=== PATIENT | female | born 1945 | race Caucasian/White ===

== ENCOUNTER 2019-05-02 14:10 | Inpatient (IN) ==
[2019-05-02] MEDS ORDERED: NITROGLYCERIN SL PRN (14:48)
[2019-05-02] MEDS ORDERED: ASPIRIN PO ONE (14:48)
[2019-05-02 15:29] LABS: BASO# 0.03 X1000 (0.0-0.2); BASO% 0.4 % (0.0-0.8); EOS# 0.09 X1000 (0.0-0.7); EOS% 1.2 % (0.0-10.0); HEMATOCRIT 39.1 % (37.0-47.0); IMM GRAN# 0.02 X1000 (0.0-0.04); IMM GRAN% 0.3 % (0.0-0.5); LYMPH% 28.9 % (20.5-51.1); MCH 26.5 PG (27-31); MCHC 33.2 g/dL (33-37); MCV 79.6 FL (81-99); MONO# 0.79 X1000 (0.11-0.59); MONO% 10.9 % (1.7-9.3); MPV 10.3 FL (7.4-10.4); NEUT# 4.23 X1000 (1.4-6.5); NEUT% 58.3 % (42.2-75.2); PLT 292 X1000 (130-400); RBC 4.91 XMIL (4.2-5.4); RDW 13.7 % (11.5-14.5); WBC 7.26 X1000 (4.8-10.8)
[2019-05-02 15:46] LABS: INR 0.89; PROTIME 12.8 Seconds (11.0-16.0)
[2019-05-02 15:47] LABS: PTT 27.9 Seconds (22.3-41.8)
[2019-05-02 16:03] LABS: ALB/GLOB RATIO 1.7; ALBUMIN 4.5 g/dL (3.5-5.0); CALCIUM 9.6 mg/dL (8.8-10.2); CREATININE 1.9 mg/dL (0.5-0.9); POTASSIUM 3.7 mmol/L (3.5-5.1); TOTAL BILIRUBIN 0.29 mg/dL (0.20-1.00); TOTAL PROTEIN 7.2 g/dL (6.3-8.3)
--- NOTE | 2019-05-02 16:18 | EKG Report ---
Test Performed on : 05/02/2019 2:20:19 PM Test Reason : ED. No order in [place] Blood Pressure : / mmHG Vent. Rate : 065 BPM Atrial Rate : 065 BPM P-R Int : 168 ms QRS Dur : 092 ms QT Int : 426 ms P-R-T Axes : 082 003 011 degrees QTc Int : 443 ms Normal sinus rhythm. RSR' or QR pattern in V1 suggests right ventricular conduction delay Cannot rule out Anterior infarct , age undetermined Abnormal ECG When compared with ECG of 06-FEB-2018 18:31, premature atrial complexes. are no longer present Unconfirmed Result
--- NOTE | 2019-05-02 16:44 | Diag Imaging Result Doc PS360 ---
EXAM: CHEST-2 VIEWS INDICATION: sob, left arm pain TECHNIQUE: 2 views COMPARISON: 02/06/2018 FINDINGS: The lungs are grossly clear. There is no discrete pleural fluid collection or pneumothorax. The cardiomediastinal silhouette and central vasculature are grossly unremarkable. IMPRESSION: No evidence of acute pathology by plain radiograph. Electronically signed by Ahmet Norris 05/02/2019 4:41 PM
[2019-05-02] MEDS ORDERED: NS 1,000 ML IV ONE (16:48)
--- NOTE | 2019-05-02 16:48 | PROVIDER DOCUMENTATION ---
This chart was entered by Mariposa Grayson Scribe, acting as scribe for Trevor Burroughs MD. HPI-Chest Pain - General Chief Complaint: Near Syncope Stated Complaint: LIGHT HEADED / ARM PAIN Time Seen by Provider: 05/02/19 14:28 Source: patient Allergies/Adverse Reactions: Patient Allergies Allergy/AdvReac Type Severity Reaction Status Date / Time adhesive Allergy Intermediate RASH Verified 02/06/18 18:41 codeine [Codeine] AdvReac Unknown Unknown Verified 02/06/18 18:41 iron AdvReac Unknown NAUSEA Verified 02/06/18 18:41 meperidine HCl * AdvReac Unknown Unknown Verified 02/06/18 18:41 [From Demerol] promethazine HCl * AdvReac Unknown Unknown Verified 02/06/18 18:41 [From Phenergan] procaine HCl * AdvReac Unknown Verified 02/06/18 18:41 [From Novocain] Home Medications: Home Medication List Medication Instructions Recorded Confirmed Last Taken Type Atorvastatin Calcium 20 mg PO HS 09/29/15 05/02/19 09/05/16 21:00 History Hydrochlorothiazide 12.5 mg PO HS 09/29/15 05/02/19 02/05/18 20:00 History Sertraline HCl 50 mg PO HS 09/29/15 05/02/19 02/05/18 20:00 History Clopidogrel Bisulfate [Plavix] 75 mg PO HS 05/10/16 05/02/19 02/05/18 20:00 History Atenolol [Tenormin] 1 tab PO DAILY 05/02/19 05/02/19 Unknown History Trazodone [Desyrel] 1 tab PO QHS 05/02/19 05/02/19 Unknown History - History of Present Illness-CP Nature of Presenting Problem: 73yof presents to ED cc left arm on and off for 1 week, severe, lasts about 20- 30mins at a time associated with sweating. Pt reports she was in [facility] today when she stood up and got very lightheaded so she decided to come to ED for evaluation. Pt denies chest pain. Pt has hx of [place] s/p stents and HTN. Pt is A*Ox3 and nontoxic in appearance. Review of Systems - Adult - REVIEW OF SYSTEMS - ADULT Constitutional: reports: other (sweating) Eyes: reports: no symptoms reported Ears, Nose, Mouth & Throat: reports: no symptoms reported Cardiovascular: reports: see HPI Respiratory: reports: no symptoms reported Gastrointestinal: reports: no symptoms reported Genitourinary: reports: no symptoms reported Musculoskeletal: reports: no symptoms reported Past History - Adult - PAST MEDICAL HISTORY-ADULT Review of Records: reports: Nursing Assessment Review, Medications Reviewed, Social history reviewed & non-contributory. Major Childhood Illnesses: reports: denies history Cardiovascular: reports: cardiac disease, CAD, [place] Respiratory: reports: denies history Gastrointestinal: reports: diverticulosis, other (gastroparesis, barretts esophagus) Obstetrical/Gynecological: reports: denies history Genitourinary: reports: denies history Musculoskeletal: reports: arthritis Neurological: reports: dementia Endocrine/Immune: reports: hypoglycemia Other Conditions: reports: denies history - PRIOR SURGERIES/PROCEDURES Surgical/Procedure History: reports: appendectomy, cholecystectomy, cardiac stent, tonsillectomy, hernia repair (X 2), breast - IMMUNIZATION STATUS Childhood Immunizations: See Nurse Assessment Flu Vaccine: See Nurse Assessment - FAMILY HISTORY Family History: reviewed, not pertinent Physical Exam-General - PHYSICAL EXAM-ADULT Initial Vital Signs Reviewed: Yes - CONSTITUTIONAL General Appearance: appears well, alert, no apparent distress. negative: anxious, combative - EYES Eyes: PERRL/EOMI, pink conjunctivae - HEAD, EARS, NOSE, MOUTH & THROAT HENMT: normocephalic/atraumatic, moist mucous membranes, normal ENT inspection - NECK Neck: non-tender, full range of motion, supple, normal inspection. negative: C- spine tenderness - RESPIRATORY Respiratory: chest non-tender, lungs clear, normal breath sounds - CARDIOVASCULAR Cardiovascular: normal peripheral pulses, regular rate, rhythm, no edema, no JVD , no murmur. negative: bradycardia, tachycardia - GASTROINTESTINAL (ABDOMEN) Abdominal Exam: normal bowel sounds, non tender, soft, no organomegaly, no pulsatile mass. negative: distended, guarding, rigid, rebound, tenderness - MUSCULOSKELETAL Back Exam: normal inspection, no CVA tenderness, no vertebral tenderness. 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 negative: facial droop, focal weakness - PSYCHIATRIC Psych/Mental Status: normal thought content, normal thought process, oriented x 3 - HEART Score HEART Score: History: Moderately Suspicious HEART Score: ECG: Normal HEART Score: Age: > or = 65 Years HEART Score: Risk Factors for Atherosclerotic Disease: > or = 3 Risk Factors or History of Atherosclerotic Disease HEART Score: Troponin: < or = Normal Limit Total HEART Score:: 5 Progress - PLAN OF CARE/RESULTS Progress/Plan/Lab Results: Vital Signs - 8 hr 05/02/19 14:17 05/02/19 14:41 Temperature 98.6 F Pulse Rate 67 Pulse Rate [Sitting] 98 H Pulse Rate [Standing] 66 Pulse Rate [Supine] 69 Respiratory Rate 18 Blood Pressure 182/75 Blood Pressure [Sitting] 171/88 Blood Pressure [Standing] 169/86 Blood Pressure [Supine] 155/74 O2 Sat by Pulse Oximetry 98 Laboratory Results - last 24 hr 05/02/19 05/02/19 05/02/19 15: 15:19 15:19 WBC 7.26 RBC 4.91 Hgb 13.0 Hct 39.1 MCV 79.6 L MCH 26.5 L MCHC 33.2 RDW Std Deviation 13.7 Plt Count 292 MPV 10.3 Immature Gran % (Auto) 0.3 Neut % (Auto) 58.3 Lymph % (Auto) 28.9 [place] % (Auto) 10.9 H Eos % (Auto) 1.2 Baso % (Auto) 0.4 Immature Gran # (Auto) 0.02 Neut # (Auto) 4.23 Lymph # (Auto) 2.10 [place] # (Auto) 0.79 H Eos # (Auto) 0.09 Baso # (Auto) 0.03 PT INR PTT (Actin FS) Sodium 136 Potassium 3.7 Chloride 95 L Carbon Dioxide 28 Anion Gap 13 BUN 15 Creatinine 1.9 H Estimated GFR/1.73 m2 26 BUN/Creatinine Ratio 8 Glucose 121 H POC Glucose Calculated Osmolality 274 Calcium 9.6 Total Bilirubin 0.29 AST 18 ALT 16 Alkaline Phosphatase 72 Creatine Kinase 159 Troponin T [id number] Pept 90 Total Protein 7.2 Albumin 4.5 Globulin 2.7 Albumin/Globulin Ratio 1.7 05/02/19 05/02/19 05/02/19 15:19 15:19 15:31 WBC RBC Hgb Hct MCV MCH MCHC RDW Std Deviation Plt Count MPV Immature Gran % (Auto) Neut % (Auto) Lymph % (Auto) [place] % (Auto) Eos % (Auto) Baso % (Auto) Immature Gran # (Auto) Neut # (Auto) Lymph # (Auto) [place] # (Auto) Eos # (Auto) Baso # (Auto) PT 12.8 INR 0.89 PTT (Actin FS) 27.9 Sodium Potassium Chloride Carbon Dioxide Anion Gap BUN Creatinine Estimated GFR/1.73 m2 BUN/Creatinine Ratio Glucose POC Glucose 120 H D Calculated Osmolality Calcium Total Bilirubin AST ALT Alkaline Phosphatase Creatine Kinase Troponin T < 0.010 [id number]-Iqhwjaigsht Pept Total Protein Albumin Globulin Albumin/Globulin Ratio Orders Category Date Time Status Cardiac Monitoring DIRECTED Care 05/02/19 14:48 Active Oxygen Therapy- ED Nursing DIRECTED Care 05/02/19 14:48 Active Saline Loc NOW Care 05/02/19 14:48 Active CHEST-2 VIEWS [RAD] Stat Exams 05/02/19 14:48 Completed CBC WITH ELECTRONIC DIFF [HEME] Stat Lab 05/02/19 15:19 Completed CK PROFILE [SP CHEM] Stat Lab 05/02/19 15:19 Completed COMPREHENSIVE METABOLIC PANEL [CHEM] Stat Lab 05/02/19 15:19 Completed PRO B-NATRIURETIC PEPTIDE Stat Lab 05/02/19 15:19 Completed PROTIME WITH INR [COAG] Stat Lab 05/02/19 15:19 Completed PTT [COAG] Stat Lab 05/02/19 15:19 Completed TROPONIN T Stat Lab 05/02/19 15:19 Completed Aspirin Med 05/02/19 14:48 Discontinued 325 mg PO NOW ONE Nitroglycerin Sl [Nitroglycerin] Med 05/02/19 14:48 Active 0.4 mg SL Q5M PRN PRN CP/SOB/Palp >45 yrs of Age Stat Oth 05/02/19 14:48 Ordered EKG [EKG] Stat Ther 05/02/19 14:20 Draft Transfer/Admit Order [TRANSFER] Routine Transfer 05/02/19 16:26 Ordered Ortho statics are unremarkable Result Diagrams: 05/02/19 15:19 05/02/19 15:19 - EKG 1 Time of EKG reading by physician:: 14:22 EKG Read and Signed by:: Trevor Burroughs EKG Interpretation (*Must complete 3 of following elements*): Abnormal (RSR or QR pattern in V1 suggests right ventricular conduction delay cannot rule out inferior infarct, age undetermined) Rate: 65 Rhythm: normal sinus QRS: normal ST Wave: normal - CONSULTS/PCP/HOSPITALIST Notification #1 *Consult/PCP/Hospitalist*: 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 TRUJILLO Time Discussed: 16:25 Consult Disposition: Admit (HX, PE AND PT CARE DISCUSSED, ACCEPTED.) Departure - Departure Date of Disposition Decision: 05/02/19 Time of Disposition Decision: 16:24 DIAGNOSIS: Left arm pain, Near syncope, YOLY (acute kidney injury) Disposition: ADMITTED INPATIENT 09 Certified Medical Emergency: Emergent Condition: Stable Additional Freetext Instructions: ED Follow Up Instructions: You have been treated by a care provider in the Emergency Department. These instructions are being provided to you so you can have an understanding of how to care for yourself upon discharge. Upon discharge from the Emergency Department, you are responsible for making arrangements for follow-up care by a physician of your choice. Take all prescribed medications as directed. Return to the Emergency Department immediately for any new or worsening symptoms. You may call the Physician Referral phone number at [phone] to obtain a list of Physicians who are taking new patients. Referrals and Follow-Ups: Adina Ferrera CRNP [Primary Care Provider] - - Critical Care Note This patient required my direct & personal management of CC.: No Attestation - Physician/ NA Attestation Patient care was provided by Advanced Practice Provider:: No The physician spent face to face time with patient:: Yes Advanced Practice Provider documentation review:: Supervising physician onsite and consulted in the evaluation and care of this patient. The physician did have a face to face encounter with the patient. This chart was documented by the indicated scribe, (Mariposa Grayson Scribe) and accurately reflects the services I performed and decisions made by me, Trevor Faulkner MD, as attested by the provider's signature.
[2019-05-02] MEDS ORDERED: NS 1,000 ML IV SCH (18:50)
[2019-05-02] MEDS ORDERED: TYLENOL PO PRN (18:50)
[2019-05-02] MEDS ORDERED: ZOFRAN IV PRN (18:50)
[2019-05-02] MEDS: PLAVIX PO SCH (20:53)
[2019-05-02] MEDS: LIPITOR PO SCH (20:54)
[2019-05-02 20:56] LABS: URINE SOURCE CLEAN CATCH
[2019-05-02] MEDS ORDERED: LIPITOR PO SCH (21:00)
[2019-05-02 21:05] LABS: BILIRUBIN URINE NEGATIVE (NEGATIVE); BLOOD URINE MODERATE (NEGATIVE); COLOR YELLOW; GLUCOSE URINE NEGATIVE (NEGATIVE); KETONE URINE NEGATIVE (NEGATIVE); LEUKOCYTES URINE TRACE (NEGATIVE); NITRITE URINE NEGATIVE (NEGATIVE); PH URINE 5.5; PROTEIN URINE NEGATIVE (NEGATIVE); SP GRAVITY URINE 1.013; TURBIDITY URINE CLEAR (CLEAR); UR EPITHELIAL CELLS <10 /HPF (<10); URINE BACTERIA NEGATIVE /HPF; URINE WBC <10 /HPF (<10); UROBILINOGEN URINE NORMAL (NORMAL)
[2019-05-02 21:13] LABS: PROTEIN CREAT RATIO 0.1; UR CREAT RANDOM 66.9 mg/dL (11-20); UR PROT RANDOM 6.7 mg/dL
--- NOTE | 2019-05-02 21:15 | Diag Imaging Result Doc PS360 ---
EXAM: CT HEAD W/O CONTRAST INDICATION: Dizziness, imbalance TECHNIQUE: This exam was performed using automated exposure control, adjustment of mA or kV according to patient size, and/or use of iterative reconstruction technique. COMPARISON: 11/08/2015 FINDINGS: There is stable diffuse brain atrophy and stable mild patchy low attenuation in the periventricular and subcortical white matter suggesting mild microangiopathy. There is no definite acute infarct given the limited sensitivity of CT versus MRI. There is no discrete intracranial mass, mass effect, or intracranial hemorrhage. The surrounding soft tissues and bony structures are essentially unremarkable. IMPRESSION: Stable chronic appearing changes as described. No definite acute intracranial pathology by CT. Electronically signed by Ahmet Norris 05/02/2019 9:12 PM
--- NOTE | 2019-05-02 21:26 | Diag Imaging Result Doc PS360 ---
EXAM: SHOULDER-LEFT INDICATION: Evaluate for arthritis of shoulder joint TECHNIQUE: 2 views COMPARISON: 11/08/2015 FINDINGS: There is no discrete fracture, dislocation, or significant intrinsic osseous lesion. The glenohumeral and AC joint spaces are grossly unremarkable. The spaces are preserved with no evidence of significant degenerative arthropathy. The surrounding soft tissues are essentially unremarkable. IMPRESSION: Essentially unremarkable plain radiograph of the left shoulder. Electronically signed by Ahmet Norris 05/02/2019 9:23 PM
--- NOTE | 2019-05-02 23:32 | HISTORY AND PHYSICAL ---
PRIMARY CARE PROVIDER: GARIMA Lake. SECONDARY CONNECTOR ARMATURE: Dr. Mackay. CHIEF COMPLAINT: "Had a spell." HPI: Ms Augustine is a 73-year-old female with past medical history of coronary artery disease status post PR with stenting, carotid artery disease followed by Dr. Mackay, hypertension, hyperlipidemia, osteoporosis, who reported for a couple weeks of left arm and shoulder pain and numbness same as her last PR would last about 30 minutes to an hour. She would rub out the pain. She did not have any chest pain per se or associated shortness of breath, nausea, vomiting, or dizziness. She did report on Sunday she was feeling bad. She took her blood pressure was 190/80. She was also having a hard time seeing then she got over that and continued to have the left arm numbness and shoulder pain intermittent however today she went to [facility] with some friends around 1:30, she stood up and almost had a near syncopal episode and since that time she has felt lightheaded that has never passed. Workup in the ED showed 1 negative cardiac enzyme and acute kidney injury with a creatinine of 1.9. EKG shows a normal sinus rhythm. Chest x-ray showed no evidence of acute pathology. She will be admitted to [facility]. Will consult Cardiology in the a.m. and set her up for an echocardiogram and carotid Dopplers and continue to trend her cardiac enzymes. PAST MEDICAL HISTORY: 1. Coronary artery disease status post PR with stenting. 2. Carotid artery disease. 3. Hypertension. 4. Hyperlipidemia. 5. Osteoporosis. PAST SURGICAL HISTORY: 1. Breast reduction. 2. Cholecystectomy. 3. Hernia repair. 4. Stent placement unknown artery. 5. She has had bilateral ankle surgery. FAMILY HISTORY: Mother passed from PR at the age of 76. One brother passed of an PR at the age of 60s. Another brother who passed at an unknown age from an PR. Father from metastatic melanoma I want to say back in the '60s, he had a spot on his arm and had his whole arm taken off. SOCIAL HISTORY: She is a . She lives alone. No alcohol, tobacco or illicit drug use. REVIEW OF SYSTEMS: Twelve-point review of systems complete negative except for those mentioned in HPI. HOME MEDICATIONS: 1. Tenormin 25 mg tablet p.o. daily. 2. Plavix 75 mg p.o. at bedtime. 3. Hydrochlorothiazide 12.5 mg p.o. at bedtime. 4. Zoloft 50 mg p.o. at bedtime. 5. Desyrel 50 mg tablet p.o. at bedtime. PHYSICAL EXAMINATION: VITAL SIGNS: Temperature is 98.6 degrees, heart rate was in the 50s, high 40s when I was in the room, respirations 14, blood pressure 155/92, O2 is 96% on room air. GENERAL: Ms. Augustine is a pleasant 73-year-old female who is sitting up in the bed rubbing her left arm but in no acute distress. HEENT: Atraumatic, normocephalic. PERRL. NECK: Supple. Trachea midline. CARDIOVASCULAR: S1, S2 appreciated. No murmurs, gallops, or rubs noted. No lower extremity edema. Bilateral pedal pulses are palpable. No carotid bruit appreciated. RESPIRATORY: Lung sounds clear bilaterally. GI: Soft, nontender, nondistended. Positive bowel sounds 4 quads. EXTREMITIES: No sign of clubbing or cyanosis. NEURO: No focal deficits noted. ASSESSMENT AND PLAN: 1. Chest pain in a patient with known coronary artery disease status post myocardial infarction and stenting 5 years ago. We will continue to do a full cardiac workup, consult Cardiology, continue to trend cardiac enzymes, first set is negative. Will continue her on her statin, check a lipid profile in the a.m., echocardiogram and carotid Dopplers in the morning. 2. Near syncope in a patient with known carotid artery disease. Again we will check her carotid Dopplers in the morning, monitor her on telemetry. Did not note any carotid bruits upon assessment, will place her on fall precautions up with assistance only, continue to track her orthostatics. Follow up CT head/brain. Continue to monitor her on telemetry. 3. Hypertension. 4. Acute kidney injury. We will hold her hydrochlorothiazide for now, gently hydrate her. 6. Hypertension currently holding her blood pressure medications. We will monitor closely. 7. Hyperlipidemia. Continue statin, check a lipid profile. 8. Osteoporosis aware. 9. Further recommendations to follow physician evaluation, laboratory and diagnostic data. Dictated by GARIMA Miller for Jadon Angel MD cc: Oleksandr Mackay MD I agree with most components of history, physical, assessement and plan. A separate addendum has been dictated. MTDD
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
[2019-05-03 04:39] LABS: BASO# 0.04 X1000 (0.0-0.2); BASO% 0.6 % (0.0-0.8); EOS# 0.09 X1000 (0.0-0.7); EOS% 1.3 % (0.0-10.0); HEMATOCRIT 37.6 % (37.0-47.0); HEMOGLOBIN 12.5 g/dL (12.0-16.0); LYMPH# 2.16 X1000 (1.2-3.4); LYMPH% 30.2 % (20.5-51.1); MCH 26.9 PG (27-31); MCHC 33.2 g/dL (33-37); MCV 80.9 FL (81-99); MONO# 0.64 X1000 (0.11-0.59); MPV 10.2 FL (7.4-10.4); NEUT# 4.22 X1000 (1.4-6.5); NEUT% 58.9 % (42.2-75.2); PLT 275 X1000 (130-400); RBC 4.65 XMIL (4.2-5.4); RDW 13.7 % (11.5-14.5); WBC 7.15 X1000 (4.8-10.8)
[2019-05-03 04:45] LABS: AGAP 11; ALB/GLOB RATIO 1.8; ALKALINE PHOSPHATASE 66 U/L (32-104); BUN 12 mg/dL (8-22); CALCIUM 8.8 mg/dL (8.8-10.2); CHLORIDE 101 mmol/L (98-107); CHOLESTEROL 107 mg/dL (0-200); COSMO 278; CREATININE 0.9 mg/dL (0.5-0.9); ESTIMATED GFR > 60; GLUCOSE 137 mg/dL (70-104); GOT 17 U/L (10-30); GPT 12 U/L (10-36); HDL 52 mg/dL (45-65); LDL 41 mg/dL; POTASSIUM 4.2 mmol/L (3.5-5.1); SODIUM 138 mmol/L (136-145); TCO2 26 mmol/L (25-35); TOTAL PROTEIN 6.2 g/dL (6.3-8.3); TRIGLYCERIDES 69 mg/dL (35-135); VLDL 14 mg/dL
[2019-05-03] MEDS ORDERED: TENORMIN PO SCH (09:00)
[2019-05-03] MEDS: PRILOSEC PO SCH (09:17)
[2019-05-03] MEDS: ASPIRIN PO SCH (09:17)
--- NOTE | 2019-05-03 11:04 | Diag Imaging Result Doc PS360 ---
EXAM: US RENAL 2 (RETROPER) COMPLETE INDICATION: jayesh/arf TECHNIQUE: COMPARISON: None. FINDINGS: The renal echotexture is grossly unremarkable. No discrete solid renal mass or hydronephrosis is appreciated. The right kidney measures 10.2 cm and the left kidney measures 10.7 cm in the greatest longitudinal axes. The renal cortices both measure up to 1 cm in thickness. The urinary bladder is unremarkable. IMPRESSION: Grossly unremarkable renal ultrasound. Electronically signed by Ahmet Norris 05/03/2019 11:02 AM
--- NOTE | 2019-05-03 16:12 | CARDIOLOGY CONSULTATION ---
DATE: 05/03/2019 CHIEF COMPLAINT ON PRESENTATION: Presyncopal. HISTORY OF PRESENT ILLNESS: Ms. Augustine is a 73-year-old female with a history of coronary disease with previous PCI. She presented for evaluation of near syncope that occurred yesterday at lunch. She was at [facility] with some friends, sat up during the course of the meal and became very lightheaded and almost passed out. She did not experience overt syncope. This episode lasted for a few minutes. She eventually presented to the ER and was found to have a significant elevation of her creatinine. Since then, she has been hydrated with fluids, and her creatinine has improved. Over the last couple of weeks, she has noted some intermittent left arm pain that would start in the left shoulder and radiate down. There was no exertional component to it. No associated shortness of breath, diaphoresis or chest pain. This is somewhat similar to when she had a PCI about 5 years ago. PAST MEDICAL HISTORY: Significant for: 1. Coronary disease. Her last cardiac catheterization was performed in [address] Quintanilla and demonstrated normal left main. Diffuse plaquing in the entirety of the LAD with 30% to 40% nature. Mid circumflex at 40% to 50% disease with luminal irregularities. The RCA was dominant vessel with a mid stent that was patent. Diffuse 20% to 30% disease noted in that vessel, 60% to 65% EF on that study. Her last nuclear scan was performed in 2017 demonstrating no defect, EF of 90%. 2. COPD. 3. Paroxysmal atrial fibrillation. 4. Hypertension. 5. Hyperlipidemia. 6. Carotid artery disease/TIA. 7. Sleep apnea. SOCIAL HISTORY: who lives alone. No alcohol or tobacco use. FAMILY HISTORY: Mother from an DC at 66. Brother had an DC in his 60s. Father from metastatic melanoma. REVIEW OF SYSTEMS: A 10-system review of systems is negative except for those things mentioned in HPI. PHYSICAL EXAMINATION: Vital Signs: Patient is afebrile. Heart rate 63, blood pressure 145/72. Her systolics have been anywhere from the 140s to the 160s more recently. General: She is in no acute distress. HEENT: Oropharynx is moist. Poor dentition. Eye examination is pink conjunctivae, white sclerae. Neck: Examination shows no obvious thyromegaly or thyroid tenderness. Cardiovascular: She sounds to be in a regular rate and rhythm. She has no murmurs. She has no S3. She has no lower extremity edema. Chest Exam: Sounds clear bilaterally. She has no increased work of breathing. Abdomen: Soft, nontender, nondistended. She has no obvious organomegaly. Skin Exam: Warm and dry throughout without any rashes. Neurological: She is moving all extremities well. She has no lateralizing deficits. PERTINENT DATA: Her echocardiogram has been performed but not read as of yet. Her sodium is 138, potassium 4.2 BUN 12 creatinine 0.9, yesterday was 15 and 1.9 respectively. Her cardiac enzymes are negative times multiple sets. Her white count is 7.1, hematocrit 37, platelet count is 275,000. Her LDL is 41. ASSESSMENT: Ms. Augustine is a 73-year-old female who presents with near-syncope. PLAN: This is likely secondary to volume depletion. Her renal function has normalized. In addition, she is having some left arm pain that has begun over the last couple of weeks that is similar to what she had at the time of a previous PCI. I would recommend performing a myocardial perfusion scan on Sunday. Orders have been placed to reflect this. Her blood pressure has elevated in the interim. We will try to resume her atenolol as previously ordered. cc: Marlon Barrera MD
--- NOTE | 2019-05-03 16:19 | ECHO REPORT ---
ORDER DATE: 05/02/2019 INDICATION: Near syncope. FINDINGS: 1. Right atrium appears normal in size at 3.3 cm. 2. Mild tricuspid regurgitation. RV systolic pressure of 42. 3. Normal RV size and systolic function. 4. Mild pulmonic insufficiency. 5. Mild left atrial enlargement with a volume index of 32. 6. No mitral valve prolapse. Mild to moderate mitral regurgitation. 7. Normal LV size, end-diastolic dimension of 4.4 cm. Normal wall thicknesses with a posterior and interventricular septal wall thickness of 0.7 cm each. Normal LV systolic function. Calculated EF of 61% with normal wall motion. 8. Aortic valve opens well. No evidence of stenosis. Trace insufficiency. 9. Aorta appears normal in visualized segments. 10. Trivial pericardial effusion seen with no tamponade features. cc: Marlon Barrera MD MTDD
--- NOTE | 2019-05-03 19:12 | PROGRESS NOTE ---
DATE: 05/03/2019 SUBJECTIVE: Feeling somewhat better. However, not resting well from being on a stretcher in the ED. OBJECTIVE: Vital signs: Temperature is only been taken since admission, heart rate 60 respirations 16, blood pressure 142/72, O2 is 97% on 2 L. General: Ms. Augustine is a pleasant 73- year-old female who is lying on the stretcher in no acute distress. HEENT: Atraumatic, normocephalic. SARITHA. Neck: Is supple. Trachea midline. CV: S1, S2 appreciated. No murmurs, gallops, rubs noted. Respiratory: Lung sounds clear. No JVD. No lower extremity edema. Bilateral pedal pulses are palpable. Pulmonary bilateral breath sounds clear. GI: Is soft, nontender, nondistended. Positive bowel sounds 4 quadrants. Skin: Warm, dry, and intact. Extremities: No signs of clubbing or cyanosis. DIAGNOSTIC DATA: Head CT stable appearing change. Left shoulder x-ray is unremarkable. Renal ultrasound grossly unremarkable. LABORATORY DATA: CBC unremarkable. Chemistry: Creatinine has gone from 1.9 down to 0.9. Three sets of cardiac enzymes have been negative. ASSESSMENT AND PLAN: 1. Chest pain in a patient with known coronary artery disease status post myocardial infarction and stenting 5 years ago. She has had a echocardiogram that has been done. Still pending that report. Three sets of negative cardiac enzymes. She has continued on her statin. We have checked a lipid profile. Awaiting cardiology recommendation. 2. Near syncope in a patient with known carotid artery disease. The patient has been having episodes of bradycardia. We initially held her Tenormin; however, it did get re-initiated. After she was given it this morning she became bradycardic and we stopped her Tenormin again. We will continue to monitor on telemetry. Place her on fall precautions. 3. Acute kidney injury completely resolved. Her hydrochlorothiazide was held. She did receive IV hydration. Her renal ultrasound was grossly normal. 4. Bradycardia could be contributing to her lightheadedness. Again, we will continue to hold her Tenormin. She seems to be symptomatic when she dips down into the 40s. 5. Hypotension, resolved. 6. Hypertension history. We have held her hydrochlorothiazide as well as Tenormin. 7. Hyperlipidemia. Continue statin. 8. Osteoporosis. Aware. 9. Further recommendation to follow physician evaluation, laboratory and diagnostic data. Dictated by GARIMA Miller for Stevenson Castro MD Addendum: Patient seen and examined by myself. Agree with GARIMA note. It reflects my assessment and plan. cc: MD Marlon Jacobs MD Luis N. Villanueva, MD Lori Henry, CRNP MTDD
[2019-05-03] MEDS: LIPITOR PO SCH (20:33)
[2019-05-03] MEDS: PLAVIX PO SCH (20:33)
--- NOTE | 2019-05-03 21:11 | EKG Report ---
Test Performed on : 05/03/2019 05:40:07 AM Test Reason : CP, near syncope Blood Pressure : / mmHG Vent. Rate : 064 BPM Atrial Rate : 064 BPM P-R Int : 188 ms QRS Dur : 094 ms QT Int : 440 ms P-R-T Axes : 075 015 021 degrees QTc Int : 453 ms Normal sinus rhythm. Low voltage QRS RSR' or QR pattern in V1 suggests right ventricular conduction delay Cannot rule out Anterior infarct (cited on or before 02-MAY-2019) Abnormal ECG When compared with ECG of 02-MAY-2019 14:20, (Unconfirmed) No significant change was found Unconfirmed Result
[2019-05-03] MEDS ORDERED: MELATONIN PO ONE (21:14)
[2019-05-04] MEDS: PRILOSEC PO SCH (05:59)
[2019-05-04] MEDS: ASPIRIN PO SCH (09:58)
[2019-05-04] MEDS: NORVASC PO SCH (09:58)
--- NOTE | 2019-05-04 10:46 | CARDIOLOGY PROGRESS NOTE ---
DATE: 05/04/2019 SUBJECTIVE: Ms. Augustine reports no pain complaints, no lightheadedness, no dizziness. PHYSICAL EXAMINATION: She is afebrile, heart rate 60, blood pressure 141/57. General: She is in no acute distress. Cardiovascular: She sounds to be in a regular rate and rhythm. She has no murmurs. She has no S3. She has no lower extremity edema. Her chest examination is clear bilaterally. No increased work of breathing. Abdomen: Soft, nontender. PERTINENT DATA: She had an EF of 61% on her echocardiogram yesterday. No evidence of wall motion abnormalities. Very small effusion with no evidence of tamponade. White count 7.1, hematocrit 37, platelet count is 275,000. Those were from labs yesterday. I have no new laboratory data from today. LDL was 41 yesterday. Cardiac enzymes negative times multiple sets. ASSESSMENT: Ms. Augustine is a 73-year-old female who had an episode of near syncope. PLAN: Near syncope was likely due to volume depletion. Her presenting creatinine was 1.9, which normalized yesterday. She had some shoulder discomfort which was consistent with pain that she had around the time of a PCI 5 years ago. For the time being, we will pursue myocardial perfusion imaging in the morning. Amlodipine was added yesterday in an effort to increase her blood pressure control. At this time, no further recommendations. If her nuclear scan is unremarkable, she can be discharged tomorrow with followup with Dr. Mackay. cc: Marlon Barrera MD
--- NOTE | 2019-05-04 11:32 | PROGRESS NOTE ---
DATE: 05/04/2019 SUBJECTIVE: Patient reports no chest pain at all. She reports some insomnia and she requests to have trazodone 50 mg p.o. at bedtime to be restarted. OBJECTIVE: Vital Signs: Temperature 98.2 degrees, heart rate 54 respiratory rate 18, blood pressure 137/51, O2 saturation 98% on 2 L nasal cannula. General: This is a 73-year-old female lying in bed, in no acute distress. Cardiovascular: S1, S2 heard. No murmurs, gallops, or rubs. Regular rate and rhythm. Respiratory: Clear bilaterally to auscultation. No work of breathing or using accessory muscles. Abdomen: Soft, nontender to palpation. Nondistended. Bowel sounds present. No organomegaly. Extremities: No clubbing, cyanosis, or edema. Peripheral pulses present in both legs. Neurological: Patient alert oriented x3. Moves 4 extremities. LABORATORY DATA: There is no labs from today. From yesterday, the renal function was back to normal. ASSESSMENT AND PLAN: 1. Chest pain in a patient with known coronary artery disease status post myocardial infarction and stenting 5 years ago. Clinically, this patient is stable not complaining of any chest pain any more. At this time we have checked troponins 3 times and those are negative. Cardiology has recommended to do a Lexiscan test tomorrow we will follow recommendations. 2. Near syncope in a patient with known carotid artery disease. At this point, we are awaiting results of that ultrasound. The patient is also having episodes of bradycardia. We have held Tenormin since yesterday. We will continue to monitor this patient closely. 3. Acute kidney injury. Completely resolved. 4. Hypotension resolved. 5. Hypertension. At this point, because this patient has borderline blood pressure in the range of 100 we are not going to restart any medications. 6. Hyperlipidemia we will continue with statin. 7. Osteoporosis. Aware. 8. Disposition. At this point awaiting results of carotid ultrasound and also Lexiscan that is going to be done tomorrow. cc: Stevenson Castro MD
[2019-05-04] MEDS: DESYREL PO SCH (20:57)
[2019-05-04] MEDS: LIPITOR PO SCH (20:57)
[2019-05-04] MEDS: PLAVIX PO SCH (20:57)
[2019-05-05 05:35] LABS: BASO# 0.02 X1000 (0.0-0.2); BASO% 0.3 % (0.0-0.8); EOS# 0.16 X1000 (0.0-0.7); EOS% 2.4 % (0.0-10.0); HEMATOCRIT 35.5 % (37.0-47.0); HEMOGLOBIN 11.5 g/dL (12.0-16.0); LYMPH# 2.15 X1000 (1.2-3.4); LYMPH% 32.6 % (20.5-51.1); MCH 26.3 PG (27-31); MCHC 32.4 g/dL (33-37); MCV 81.2 FL (81-99); MONO# 0.58 X1000 (0.11-0.59); MONO% 8.8 % (1.7-9.3); MPV 10.4 FL (7.4-10.4); NEUT# 3.68 X1000 (1.4-6.5); NEUT% 55.9 % (42.2-75.2); PLT 268 X1000 (130-400); RBC 4.37 XMIL (4.2-5.4); RDW 13.7 % (11.5-14.5); WBC 6.59 X1000 (4.8-10.8)
[2019-05-05 05:57] LABS: AGAP 12; BUN 13 mg/dL (8-22); CALCIUM 8.2 mg/dL (8.8-10.2); CHLORIDE 103 mmol/L (98-107); COSMO 282; CREATININE 0.9 mg/dL (0.5-0.9); ESTIMATED GFR > 60; GLUCOSE 113 mg/dL (70-104); POTASSIUM 4.2 mmol/L (3.5-5.1); SODIUM 141 mmol/L (136-145); TCO2 26 mmol/L (25-35)
[2019-05-05] MEDS: PRILOSEC PO SCH (06:02)
[2019-05-05] MEDS: ASPIRIN PO SCH (08:00)
[2019-05-05] MEDS: NORVASC PO SCH (08:00)
[2019-05-05] MEDS ORDERED: LEXISCAN ONE (15:17)
--- NOTE | 2019-05-05 18:59 | CARDIOLOGY PROGRESS NOTE ---
DATE: 05/05/2019 SUBJECTIVE: Ms. Augustine has not had any episodes of chest pain overnight. PHYSICAL EXAMINATION: Vital signs: Afebrile. Heart rate 63, blood pressure 154/62. General: She is in no acute distress. Cardiovascular: She sounds to be in a regular rate and rhythm. She has no murmurs. She has no S3. She has no lower extremity edema. Chest: Clear bilaterally. She has no increased work of breathing. Abdomen: Soft, nontender, nondistended. She has no obvious organomegaly. Skin: Warm and dry without any rashes. PERTINENT DATA: Lab data shows a white count of 6.6, hematocrit 35.5, platelet count is 268,000, sodium 141, potassium 4.2, BUN 13, creatinine 0.9. LDL was 41. ASSESSMENT: Ms. Augustine is a 73-year-old female who presented with near syncope as well as some left arm discomfort. PLAN: Her near-syncope is likely secondary to volume depletion. Her renal function has normalized. Her left arm discomfort was similar to what she had at the time of her previous PCI. We are currently pursue perfusion imaging. If this is unremarkable, then she could be discharged home from my standpoint. cc: Marlon Barrera MD
[2019-05-05] MEDS: LIPITOR PO SCH (21:18)
[2019-05-05] MEDS: DESYREL PO SCH (21:18)
[2019-05-05] MEDS: PLAVIX PO SCH (21:18)
[2019-05-06 06:07] LABS: BASO# 0.02 X1000 (0.0-0.2); BASO% 0.3 % (0.0-0.8); EOS# 0.19 X1000 (0.0-0.7); EOS% 3.2 % (0.0-10.0); HEMATOCRIT 35.2 % (37.0-47.0); HEMOGLOBIN 11.5 g/dL (12.0-16.0); LYMPH# 1.82 X1000 (1.2-3.4); LYMPH% 30.7 % (20.5-51.1); MCH 26.6 PG (27-31); MCHC 32.7 g/dL (33-37); MCV 81.3 FL (81-99); MONO# 0.48 X1000 (0.11-0.59); MONO% 8.1 % (1.7-9.3); MPV 10.4 FL (7.4-10.4); NEUT# 3.41 X1000 (1.4-6.5); NEUT% 57.7 % (42.2-75.2); PLT 258 X1000 (130-400); RBC 4.33 XMIL (4.2-5.4); RDW 13.8 % (11.5-14.5); WBC 5.92 X1000 (4.8-10.8)
[2019-05-06] MEDS: PRILOSEC PO SCH (06:09)
[2019-05-06 06:26] LABS: AGAP 9; BUN 15 mg/dL (8-22); CHLORIDE 103 mmol/L (98-107); COSMO 282; CREATININE 0.9 mg/dL (0.5-0.9); ESTIMATED GFR > 60; GLUCOSE 130 mg/dL (70-104); POTASSIUM 4.2 mmol/L (3.5-5.1); SODIUM 140 mmol/L (136-145); TCO2 28 mmol/L (25-35)
--- NOTE | 2019-05-06 06:34 | Diag Imaging Result Document ---
PROCEDURE NAME: MYOCARDIAL PERF SCAN, STR/REST - 05/05/2019 STUDY: Rest/stress Lexiscan myocardial perfusion study. INDICATION: The patient with chest pain. DESCRIPTION: The patient came into the nuclear lab and received a rest injection of technetium 99 sestamibi 14.1 mCi. Multiple tomographic views of the cardiac structure were obtained at rest. Subsequently the patient underwent infusion of Lexiscan 0.4 mg. At peak infusion injected with technetium 99 sestamibi 42.3 mCi. Multiple tomographic views of the cardiac structure were obtained following the completion of the protocol. SUMMARY OF THE ELECTROCARDIOGRAPHIC PORTION OF THE STUDY: Resting electrocardiogram shows sinus rhythm with a rate of 73 beats per minute. Resting ECG shows nonspecific T wave flattening. Resting blood pressure 178/69. During infusion of Lexiscan, the heart rate increased to 93 beats per minute. Blood pressure went up to 179/69. The patient reported no symptoms. Electrocardiogram showed no changes. Following the completion of the infusion, the heart rate and blood pressure returned back to baseline. There was nonspecific T-wave flattening noted during the recorded phase. In summary, the electrocardiographic response to an infusion of Lexiscan is deemed to be nonspecific. SUMMARY OF THE MYOCARDIAL PERFUSION PORTION OF THE STUDY: Poststress tomographic views of the left ventricle showed normal homogenous distribution of the radiotracer throughout the entire myocardium. There is no convincing evidence of any postexercise defect. The rest images showed normal perfusion. The polar plots revealed the same. There is no convincing evidence of any inducible ischemia nor myocardial scar. Gated SPECT shows normal left ventricular systolic function. The ejection fraction of 90% with normal ventricular volumes and no wall motion abnormality. The lung/heart ratio is 0.3. The TID is 1.05. SUMMARY: This study shows 1. Nonspecific electrocardiographic response to infusion of Lexiscan. 2. Normal post treadmill cardiac perfusion scan. There is no scintigraphic evidence of pharmacologic induced myocardial ischemia. 3. Normal left ventricular systolic function, ejection fraction of 90% with normal ventricular volumes and no wall motion abnormality. This study represents low risk for ischemic events. cc: MD Marlon Banerjee MD
[2019-05-06 08:05] VITALS: BP 150/63
[2019-05-06] MEDS: ASPIRIN PO SCH (08:45)
[2019-05-06] MEDS: NORVASC PO SCH (08:45)
--- NOTE | 2019-05-06 22:07 | DISCHARGE SUMMARY ---
ADMISSION DATE: 05/02/2019 DISCHARGE DATE: 05/06/2019 PRIMARY CARE PROVIDER: GARIMA Lake. ADMISSION DIAGNOSES: 1. Atypical left shoulder pain without exertional component. 2. Dizziness with episode of presyncope. 3. Kidney failure of uncertain chronicity, likely acute. DISCHARGE DIAGNOSES: 1. Chest pain in a patient with known coronary artery disease status post myocardial infarction and stenting 5 years previously ruled out by myocardial perfusion scan. 2. Near syncope likely secondary to volume depletion, resolved. 3. Hypotension, resolved. 4. Hyperlipidemia. CONSULTATIONS: With Cardiology. SUMMARY OF FINDINGS: This is a 73-year-old female who presented with an episode of presyncope and began complaining of a persistent left shoulder pain on and off for the past 2 weeks. EKG was unremarkable without any ST elevation or ST depression. Cardiac enzymes x3 sets were negative. We did consult Cardiology. We did a myocardial perfusion scan yesterday that was read as normal post treadmill cardiac perfusion scan with no scintigraphic evidence of pharmacological induced myocardial ischemia. We did an echocardiogram on 05/02/2019 that showed an ejection fraction of 61% with normal LV systolic function. It is now felt that she can safely be discharged home. DISCHARGE MEDICATIONS: She has a new prescription for Norvasc 5 mg p.o. daily #90 with no refills, atenolol 25 mg p.o. daily, atorvastatin 20 mg p.o. at bedtime, Plavix 75 mg p.o. at bedtime, hydrochlorothiazide 12.5 mg p.o. at bedtime, sertraline 50 mg p.o. at bedtime and trazodone 50 mg p.o. at bedtime. FOLLOWUP: She will need to follow up with her primary care physician on May 20 at 10 a.m. All discharge instructions have been reviewed with the patient and she verbalized understanding. TIME SPENT: 35 minutes. Dictated by GARIMA Theodore for Stevenson Castro MD Addendum: Patient seen and examined by myself. Agree with GARIMA note. It reflects my assessment and plan. Patient is being discharged from hospital in stable condition. Will be seen by PCP in a week. cc: GARIMA Lake MD [facility]
== END 2019-05-06 09:40 | disposition home or self-care (01) | DRG 641 ==
LOC: ED 14:10 → SUATTDRO 16:41 → EDIPHOLD 16:41 → 3S 05-03 15:11
PROVIDERS: ATTEND Internal Medicine
CPT/HCPCS: 70450; 71020; 71046; 73030; 76770; 78452; 80048; 80053; 80061; 81001; 82550; 82570; 82948; 83735; 83880; 84156; 84300; 84484; 85025; 85610; 85730; 87088; 93005; 93017; 93306; 93880; A9270; A9500; J2785; J7030; XXXXX